=== PATIENT | female | born 2000 | race Caucasian/White ===

== ENCOUNTER 2021-02-25 12:59 | Emergency (ER) | payer OTHER ==
[~2021-02-25] VITALS: Ht 160 cm; Wt 75.0 kg
[2021-02-25 13:25] VITALS: BP 114/80
[2021-02-25] MEDS ORDERED: FAMOTIDINE 20 MG TABLET PO ONE (13:45)
[2021-02-25] MEDS ORDERED: predniSONE 20 MG TABLET PO ONE (13:45)
[2021-02-25] MEDS ORDERED: PRED20TA PO (14:00)
[2021-02-25] MEDS ORDERED: MUPI15CR8 TP (14:01)
--- NOTE | 2021-02-25 14:05 | PHYS DOC ---
Past History Past Surgical History: No Surgical History Alcohol Use: Occasionally General Adult EDM: Chief Complaint: SKIN PROBLEM HPI: HPI: Patient is a 20-year-old female who presents with hives. "I used a hands and tested yesterday my friend made that had tyler essential oils in it". "I am very allergic to cherries". Patient has hives all over her face, bilateral arm s, chest. "I also had poison juve a week ago and has had some open sores on the back of my ear, that are now crusty". Patient reports taking 50 mg of Benadryl prior to arrival. Patient reports hives are itchy. Denies shortness of breath, cough. Review of Systems: Review of Systems: Constitutional: Denies fever or chills Eyes: Denies change in visual acuity HENT: Denies nasal congestion or sore throat Respiratory: Denies cough or shortness of breath Cardiovascular: Denies chest pain or edema GI: Denies abdominal pain, nausea, vomiting, bloody stools or diarrhea : Denies dysuria Musculoskeletal: Denies back pain or joint pain Integument: Reports pruritic hives on bilateral arms, legs, chest Neurologic: Denies headache, focal weakness or sensory changes Endocrine: Denies polyuria or polydipsia Lymphatic: Denies swollen glands Psychiatric: Denies depression or anxiety Current Medications: Current Meds: Current Medications Medications (Trade) Dose Ordered Sig/Ana Maria Start Time Stop Time Status Last Admin Dose Admin Famotidine (Pepcid) 40 mg 1X ONCE 02/25/21 13:45 02/25/21 13:46 UNV Prednisone (Prednisone) 60 mg 1X ONCE 02/25/21 13:45 02/25/21 13:46 UNV Allergies: Allergies: Allergies Coded Allergies Type Severity Reaction Last Updated Verified No Known Drug Allergies 02/25/21 No Physical Exam: PE: Constitutional: Well developed, well nourished, no acute distress, non-toxic appearance. [] HENT: Normocephalic, atraumatic, bilateral external ears normal, oropharynx moist, no oral exudates, nose normal. [] Eyes: PERRLA, EOMI, conjunctiva normal, no discharge. [] Neck: Normal range of motion, no tenderness, supple, no stridor. [] Cardiovascular:Heart rate regular rhythm, no murmur [] Lungs & Thorax: Bilateral breath sounds clear to auscultation [] Abdomen: Bowel sounds normal, soft, no tenderness, no masses, no pulsatile masses. [] Skin: Pruritic, red raised, uriticaria Back: No tenderness, no CVA tenderness. [] Extremities: No tenderness, no cyanosis, no clubbing, ROM intact, no edema. [] Neurologic: Alert and oriented X 3, normal motor function, normal sensory function, no focal deficits noted. [] Psychologic: Affect normal, judgement normal, mood normal. [] Current Patient Data: Vital Signs: Vital Signs Date Time Temp Pulse Resp B/P (MAP) Pulse Ox O2 Delivery O2 Flow Rate FiO2 02/25/21 13:25 98.1 90 16 114/80 98 Room Air EKG: EKG: [] Radiology/Procedures: Radiology/Procedures: [] Heart Score: C/O Chest Pain: No Risk Factors: Risk Factors: DM, Current or recent (<one month) smoker, HTN, HLP, family history of CAD, obesity. Risk Scores: Score 0 - 3: 2.5% MACE over next 6 weeks - Discharge Home Score 4 - 6: 20.3% MACE over next 6 weeks - Admit for Clinical Observation Score 7 - 10: 72.7% MACE over next 6 weeks - Early Invasive Strategies Course & Med Decision Making: Course & Med Decision Making Pertinent Labs and Imaging studies reviewed. (See chart for details) [] 20-year-old female presents with puritic hives on bilateral arms, chest, face. Patient reports taking 50 mg of Benadryl prior to arrival. Patient given 60 mg of prednisone. 40 mg famotidine. Patient sent home with a prescription for prednisone for 5 days. Patient to continue taking Benadryl for symptom control. Patient is also complaining of sore behind her ear that was draining and crusty from previous poison juve. Patient given prescription for Bactroban to treat impetigo. Patient given strict return precautions. Patient is hemodynamically stable. Patient states that she understands discharge instructions. Dragon Disclaimer: Dragon Disclaimer: This electronic medical record was generated, in whole or in part, using a voice recognition dictation system. Departure Departure: Impression: Primary Impression: Urticaria Disposition: HOME / SELF CARE / HOMELESS Condition: STABLE Referrals: PCP,NO (PCP) Patient Instructions: Hives, [id number] Additional Instructions: You are seen in the emergency room for hives and poison juve infection along with impetigo. I am giving you a prescription to go home with of prednisone and Bactroban. You received prednisone and famotidine in the ER. Please continue taking Benadryl as needed for symptom control. Please return emergency room if you have any trouble breathing, shortness of breath or any concerns. EMERGENCY DEPARTMENT GENERAL DISCHARGE INSTRUCTIONS Thank you for coming to [facility] (ED) today and trusting us with you care. We trust that you had a positivie experience in our Emergency Department. If you wish to speak to the department management, you may call the director at [phone]. YOUR FOLLOW UP INSTRUCTIONS ARE FOLLOWS: 1. Do you have a private Doctor? If you do not have a private doctor, please ask for a resource list of physicians or clinics that may be able to assist you with follow up care. 2. The Emergency Physician has interpreted your x-rays. The X-Ray specialist will also review them. If there is a change in the findings, you will be notified in 48 hours when at all possible. 3. A lab test or culture has been done, your results will be reviewed and you will be notified if you need a change in treatment. ADDITIONAL INSTRUCTIONS AND INFORMATION: 1. Your care today has been supervised by a physician who is specially trained in emergency care. Many problems require more than one evaluation for a complete diagnosis and treatment. We recommend that you schedule your follow up appointment as recommended to ensure complete treatment of you illness or injury. If you are unable to obtain follow up care and continue to have a problem, or if your condition worsens, we recommend that you return to the ED. 2. We are not able to safely determine your condition over the phone nor are we able to give sound medical advice over the phone. For these safety reasons, if you call for medical advice we will ask you to come to the ED for further evaluation. 3. If you have any questions regarding these discharge instructions please call the ED at [phone]. SAFETY INFORMATION: In the interest of safety, wellness, and injury prevention; we encourage you to wear your sealbelt, if you smoke; quite smoking, and we encourage family to use a protective helmet for bicycling and other sporting events that present an increased risk for head injury. IF YOUR SYMPTOMS WORSEN OR NEW SYMPTOMS DEVELOP, OR YOU HAVE CONCERNS ABOUT YOUR CONDITION; OR IF YOUR CONDITION WORSENS WHILE YOU ARE WAITING FOR YOUR FOLLOW UP APPOINTMENT; EITHER CONTACT YOUR PRIMARY CARE DOCTOR, THE PHYSICIAN WHOSE NAME AND NUMBER YOU WERE GIVEN, OR RETURN TO THE ED IMMEDIATELY. Scripts Mupirocin Calcium (MUPIROCIN) 15 Gm Cream..g. 1 MOE TP TID for impetigo for 7 Days, #15 GM 0 Refills Prov: FITZ MUHAMMAD APRN 02/25/21 Prednisone (PREDNISONE) 20 Mg Tablet 2 TAB PO DAILY for allergies for 5 Days, #10 TAB Take 2 tabs daily for 5 days. Prov: FITZ MUHAMMAD APRN 02/25/21 FITZ MUHAMMAD APRN Feb 25, 2021 14:05
== END 2021-02-25 14:15 | disposition home or self-care (01) ==
LOC: ER 12:59
DX: L50.9 Urticaria, unspecified (principal)
CPT/HCPCS: 99283; J7512

== ENCOUNTER → 2021-06-05 | Outpatient (CLI) | payer OTHER ==
[~2021-06-05] MED LIST: MUPI15CR8 TP; PRED20TA PO
--- NOTE | 2021-06-05 10:53 | RAD ---
AP view of the abdomen Clinical indications: Abdominal pain. FINDINGS: There is mild fecal retention within the right side of the colon. No dilatation of the colo n or small bowel is evident. Spina bifida occulta of L5 is seen which is a normal anatomical variant. No pathological calcifications are seen. IMPRESSION: No obstructive bowel pattern. Electronically signed by: Antoine Laird MD (06/05/2021 10:50 AM) [id number]
== END ==
LOC: PMG 10:28
PROVIDERS: ATTEND Nurse Practitioner Family
DX: Q05.7 Lumbar spina bifida without hydrocephalus (principal); R10.84 Generalized abdominal pain
CPT/HCPCS: 74018